=== PATIENT | male | born 1970 | race African-American/Black ===

== ENCOUNTER → 2023-10-19 | Emergency (ER) | payer OTHER ==
[2023-10-19 12:31] LABS: Hematocrit 44.6 % (39.6-49.0); Lymphocytes % 44.8 % (15.3-44.8); MCV 92.3 fL (80-100); MPV 8.8 fL (7.6-11.3); Platelets 234 thou/uL (152-406); RBC Red Blood Cell Count 4.83 M/uL (4.33-5.43)
[2023-10-19 12:51] LABS: Albumin 3.7 g/dL (3.4-5.0); Bilirubin Direct 0.2 mg/dL (0-0.2); Bilirubin Indirect, Calculated 0.2 mg/dL (0.2-0.8); Bilirubin Total 0.4 mg/dL (0.2-1.0); Potassium 3.5 mEq/L (3.5-5.1); Protein, Total 7.5 g/dL (6.4-8.2); Troponin High Sensitivity 8.2 pg/mL (<58.9)
[2023-10-19 13:19] LABS: Blood Morphology Comment NOT SEEN (NOT SEEN); Platelet Estimate ADEQ; White Blood Cell Scan OK (OK)
--- NOTE | 2023-10-19 13:42 | EDPHYS ---
Physician Documentation [facility] Name: Leroy Lennon Age: 53 yrs Sex: Male : 1970 Arrival Date: 10/19/2023 Time: 11:53 Bed 16 Private MD: ED Physician Emerson Clarke HPI: 10/19 12:30 This 53 yrs old Black Male presents to ER via EMS with complaints of High Blood rt Pressure. 12:30 Patient presents to the ED with reported hypertension at the present. Denies any rt symptoms at this time. He has pre-existing hypertension, blood pressure was reportedly 218/120 at the present. EMS states that has been noncompliant with his meds, he does report compliance. Denies other acute complaints, symptoms are moderate in severity, no other aggravating or elevating factors.. Historical: - Allergies: 12:04 No Known Allergies; ll1 - PMHx: 12:04 Hypertensive disorder; ll1 - PSHx: 12:04 Hand surgery; ll1 - Immunization history:: Adult Immunizations up to date. - Social history:: Smoking status: Patient denies any tobacco usage or history of. - Family history:: not pertinent. ROS: 12:30 Constitutional: Negative for fever, chills, and weight loss, Cardiovascular: Negative rt for chest pain, palpitations, and edema, Respiratory: Negative for shortness of breath, cough, wheezing, and pleuritic chest pain, Abdomen/GI: Negative for abdominal pain, nausea, vomiting, diarrhea, and constipation, MS/Extremity: Negative for injury and deformity, Skin: Negative for injury, rash, and discoloration, Neuro: Negative for headache, weakness, numbness, tingling, and seizure, Psych: Negative for depression, anxiety, suicide ideation, homicidal ideation, and hallucinations, Exam: 12:30 Constitutional: This is a well developed, well nourished patient who is awake, alert, rt and in no acute distress. Head/Face: Normocephalic, atraumatic. Chest/axilla: Normal chest wall appearance and motion. Nontender with no deformity. No lesions are appreciated. Cardiovascular: Regular rate and rhythm with a normal S1 and S2. No gallops, murmurs, or rubs. Normal PMI, no JVD. No pulse deficits. Respiratory: Lungs have equal breath sounds bilaterally, clear to auscultation and percussion. No rales, rhonchi or wheezes noted. No increased work of breathing, no retractions or nasal flaring. Abdomen/GI: Soft, non-tender, with normal bowel sounds. No distension or tympany. No guarding or rebound. No evidence of tenderness throughout. Skin: Warm, dry with normal turgor. Normal color with no rashes, no lesions, and no evidence of cellulitis. MS/ Extremity: Pulses equal, no cyanosis. Neurovascular intact. Full, normal range of motion. Neuro: Awake and alert, GCS 15, oriented to person, place, time, and situation. Cranial nerves II-XII grossly intact. Motor strength 5/5 in all extremities. Sensory grossly intact. Cerebellar exam normal. Normal gait. Psych: Awake, alert, with orientation to person, place and time. Behavior, mood, and affect are within normal limits. 12:30 ECG was reviewed by the Attending Physician. Vital Signs: 12:00 BP 157 / 119; Pulse 67; Resp 16; Temp 97.3; Pulse Ox 96% ; Weight 68.04 kg; Height 5 ll1 ft. 10 in. ; Pain 0/10; 12:54 BP 147 / 106; Pulse 65; Resp 16 S; Pulse Ox 97% on R/A; kc6 13:52 BP 174 / 109; Pulse 65; Resp 16; Pulse Ox 97% ; ll1 12:00 Body Mass Index 21.52 (68.04 kg, 177.8 cm) ll1 12:00 Pain Scale: Adult ll1 MDM: 12:00 Patient medically screened. rt 13:42 Differential diagnosis: hypertensive crisis, Essential hypertension, renal dysfunction. rt Data reviewed: vital signs, nurses notes, lab test result(s), EKG. Consideration of Admission/Observation Escalation of care including admission/observation considered. No evidence of endorgan dysfunction, patient stable for outpatient care with present doctor. Care significantly affected by the following chronic conditions: Hypertension. Counseling: I had a detailed discussion with the patient and/or guardian regarding the historical points, exam findings, and any diagnostic results supporting the discharge/admit diagnosis, lab results, the need for outpatient follow up. 10/19 12:05 Order name: Basic Metabolic Panel; Complete Time: 13:26 rt 10/19 12:05 Order name: CBC with Diff; Complete Time: 13: rt 10/19 12:05 Order name: LFT's; Complete Time: : rt 10/19 12:05 Order name: Troponin HS; Complete Time: : rt 10/19 12:35 Order name: CBC Smear Scan; Complete Time: 13: EDMS 10/19 12:05 Order name: EKG; Complete Time: 12: rt 10/19 12:05 Order name: Cardiac monitoring; Complete Time: 12: rt 10/19 12:05 Order name: EKG - Nurse/Tech; Complete Time: 12: rt 10/19 12:05 Order name: IV Saline Lock; Complete Time: 12: rt 10/19 12:05 Order name: Labs collected and sent; Complete Time: : rt 10/19 12:05 Order name: O2 Per Protocol; Complete Time: 12: rt 10/19 12:05 Order name: O2 Sat Monitoring; Complete Time: 12:07 rt EC:30 Rate is 66 beats/min. Rhythm is regular, Normal Sinus Rhythm with No ectopy. QRS [place] rt is Normal. [place] interval is normal. QRS interval is normal. QT interval is normal. No Q waves. No ST changes noted. Administered Medications: No medications were administered Disposition Summary: 10/19/23 13:41 Discharge Ordered Notes: Location: Law [employer] rt Problem: an acute exacerbation rt Symptoms: have improved rt Condition: Stable rt Diagnosis - Essential (primary) hypertension rt Followup: rt - With: Private Physician - When: 2 - 3 days - Reason: Discharge Instructions: - Discharge Summary Sheet rt - Hypertension, Adult rt Forms: - Medication Reconciliation Form rt - Thank You Letter rt - Antibiotic Education rt - Prescription Opioid Use rt - Patient Portal Instructions rt - Leadership Thank You Letter rt Signatures: Dispatcher [employer] Efraín Elizondo, RN RN ll1 Emerson Clarke MD MD rt
--- NOTE | 2023-10-19 13:42 | ER ---
Nurse's Notes [facility] Name: Leroy Lennon Age: 53 yrs Sex: Male : 1970 Arrival Date: 10/19/2023 Time: 11:53 Bed 16 Private MD: Diagnosis: Essential (primary) hypertension Presentation: 10/19 12:00 Chief complaint: Patient states: BP elevated for the past two days BP 218/120 at ll1 [facility] [employer]. Gave hydralazine 50 MG and Furosemide 40 MG at the unit. EMS states: Labetalol 10 MG IV x 2, BP 163/100's after BP meds. 18 G R FA SL. Coronavirus screen: Vaccine status: Patient reports receiving the 2nd dose of the covid vaccine. Client denies travel out of the [place] in the last 14 days. At this time, the client does not indicate any symptoms associated with coronavirus-19. Ebola Screen: Patient denies travel to an Ebola-affected area in the 21 days before illness onset. Initial Sepsis Screen: Does the patient meet any 2 criteria? No. Patient's initial sepsis screen is negative. Does the patient have a suspected source of infection? No. Patient's initial sepsis screen is negative. Risk Assessment: Do you want to hurt yourself or someone else? Patient reports no desire to harm self or others. Onset of symptoms was October 18, 2023. 12:00 Method Of Arrival: EMS ll1 12:00 Acuity: PAMELA 2 ll1 Triage Assessment: 12:05 General: Appears in no apparent distress. Behavior is calm, cooperative, appropriate ll1 for age, Reports high BP. Pain: Denies pain. Historical: - Allergies: 12:04 No Known Allergies; ll1 - PMHx: 12:04 Hypertensive disorder; ll1 - PSHx: 12:04 Hand surgery; ll1 - Immunization history:: Adult Immunizations up to date. - Social history:: Smoking status: Patient denies any tobacco usage or history of. - Family history:: not pertinent. Screenin:15 [facility] ED Fall Risk Assessment (Adult) History of falling in the last 3 months, kc6 including since admission No falls in past 3 months (0 pts) Confusion or Disorientation No (0 pts) Intoxicated or Sedated No (0 pts) Impaired Gait No (0 pts) Mobility Assist Device Used No (0 pt) Altered Elimination No (0 pt) Score/Fall Risk Level 0 - 2 = Low Risk. Abuse screen: Denies threats or abuse. Denies injuries from another. Nutritional screening: No deficits noted. Tuberculosis screening: No symptoms or risk factors identified. Assessment: 13:30 Reassessment: No changes from previously documented assessment. [place], chips, drink, ld1 water, jello given for lunch. 13:53 Reassessment: No changes from previously documented assessment. Patient and/or family ll1 updated on plan of care and expected duration. Pain level reassessed. Patient is alert, oriented x 3, equal unlabored respirations, skin warm/dry/pink. Vital Signs: 12:00 BP 157 / 119; Pulse 67; Resp 16; Temp 97.3; Pulse Ox 96% ; Weight 68.04 kg; Height 5 ll1 ft. 10 in. ; Pain 0/10; 12:54 BP 147 / 106; Pulse 65; Resp 16 S; Pulse Ox 97% on R/A; kc6 13:52 BP 174 / 109; Pulse 65; Resp 16; Pulse Ox 97% ; ll1 12:00 Body Mass Index 21.52 (68.04 kg, 177.8 cm) ll1 12:00 Pain Scale: Adult ll1 ED Course: 11:59 Patient arrived in ED. ll1 12:00 Emerson Clarke MD is Attending Physician. rt 12:04 Triage completed. ll1 12:05 Arm band placed on Patient placed in an exam room, on a stretcher. ll1 12:05 Provided Education on: ER procedures and process. ll1 12:13 Maintain EMS IV. Dressing intact. Good blood return noted. Site clean \T\ dry. Gauge \T\ ll 1 site: 18 L FA. 12:15 Patient has correct armband on for positive identification. Bed in low position. Call kc6 light in reach. Side rails up X2. Security at bedside. Client placed on continuous cardiac and pulse oximetry monitoring. NIBP monitoring applied. engine monitor on. 12:15 Patient maintains SpO2 saturation greater than 95% on room air. kc6 12:52 Tatiana Sesay, JOSIE is Primary Nurse. kc6 13:52 IV discontinued, intact, bleeding controlled, No redness/swelling at site. Pressure ll1 dressing applied. 13:53 No provider procedures requiring assistance completed. ll1 Administered Medications: No medications were administered Medication: 13:53 VIS not applicable for this client. ll1 Outcome: 13:41 Discharge ordered by . rt 13:53 Discharged to home ambulatory, ll1 13:53 Condition: stable 13:53 Discharge instructions given to patient, Instructed on discharge instructions, follow up and referral plans. Demonstrated understanding of instructions, follow-up care, 13:54 Patient left the ED. ll1 Signatures: Efraín Patel RN RN ll1 Rehana Bean RN RN ld1 Tatiana Sesay RN RN kc6 Emerson Clarke MD MD rt
[2023-10-19 14:17] VITALS: BP 174/109; TEMP 97.3; O2SAT 97
== END ==
LOC: ER 11:53
DX: I10 Essential (primary) hypertension (principal)
CPT/HCPCS: 36415; 80048; 80076; 84484; 85025